=== PATIENT | female | born 1995 | race Caucasian/White ===

== ENCOUNTER 2024-09-18 09:00 | Emergency (ER) | payer OTHER ==
[~2024-09-18] VITALS: Ht 154.9 cm; Wt 64.0 kg
[2024-09-18 09:03] VITALS: O2SAT 99
[2024-09-18] MEDS: ACETAMINOPHEN 325MG TABLET PO ONE (11:01)
[2024-09-18 11:32] VITALS: BP 114/44; PULSE 63; RESP 18; TEMP 36.78072; O2SAT 100
== END 2024-09-18 11:34 | disposition home or self-care (01) ==
LOC: ER 09:00
DX: S09.90XA Unspecified injury of head, initial encounter (principal); V49.40XA Driver injured in collision with unspecified motor vehicles in traffic accident, initial encounter; Y93.89 Activity, other specified; Y92.89 Other specified places as the place of occurrence of the external cause; Y99.8 Other external cause status
CPT/HCPCS: 99282